=== PATIENT | female | born 1985 | race Caucasian/White ===

== ENCOUNTER → 2021-03-15 | Outpatient (CLI) | payer BC ==
--- NOTE | 2021-03-15 16:29 | RAD ---
EXAM: Cervical spine, 4 views. HISTORY: Pain. COMPARISON: None. FINDINGS: 4 views of the sacral spine are obtained. There is no listhesis. The vertebral bodies are n ormal in height and the disc spaces are preserved. IMPRESSION: No acute osseous finding. Electronically signed by: Marie Neves MD (03/15/2021 4:26 PM) [id number]
== END ==
LOC: RAD 15:33
PROVIDERS: ATTEND Psychiatry & Neurology Neurology
DX: M54.2 Cervicalgia (principal)
CPT/HCPCS: 72040